=== PATIENT | male | born 1995 | race African-American/Black ===

== ENCOUNTER 2016-08-11 13:25 | Emergency (ER) | payer OTHER ==
[~2016-08-11] VITALS: Ht 188 cm; Wt 72.7 kg
[2016-08-11 15:47] VITALS: BP 137/63
== END 2016-08-11 16:30 | disposition home or self-care (01) ==
LOC: EMS 13:27
DX: H10.9 Unspecified conjunctivitis (principal)
CPT/HCPCS: 99283